=== PATIENT | female | born 1970 | race Caucasian/White ===

== ENCOUNTER → 2016-03-03 | Outpatient (CLI) | payer BC ==
[~2016-03-03] MED LIST: ADAL40PE SQ; ALPR0.5T6 PO; BUPR150T15 PO; BUPR150T4 PO; CELE100C PO; CYAN5POW MC; CYCL10TA2 PO; CYCL5TAB PO; ESTR0.3T PO; HYDR200T5 PO; LISD50CA2 PO; OXYC-244 PO; OXYC5CAP3 PO; PHEN1CPM3 PO; PREG20SO PO; TRAM50TA PO; VARE1TAB5 PO; VENL25TA PO; VENL75TA PO
--- NOTE | 2016-03-03 11:17 | RAD ---
Indication leukocytosis. Protocol study. PA and lateral views of the chest were obtained and are compared to an examination 6 years earlier. The heart and pulmonary vessels appear normal. There are calcified left hilar lymph nodes similar to the previous exam. An acute parenchymal infiltrate or significant change when compared to the previous exam is not seen. IMPRESSION: No acute finding. No significant change
== END | disposition home or self-care (01) ==
LOC: RAD 09:56
PROVIDERS: ATTEND Family Medicine
DX: D72.829 Elevated white blood cell count, unspecified (principal)
CPT/HCPCS: 71020

== ENCOUNTER → 2018-05-18 | Outpatient (CLI) | payer BC ==
[~2018-05-18] MED LIST changes: +DOXE10CA PO; +DULO60CA6 PO; +EMPA10TA PO; +HYDR-2145 PO; +LEVO50TA5 PO; +LIRA0.6P2 SQ; -LISD50CA2 PO; +LISD50CA3 PO; +METF10007 PO; -OXYC-244 PO; +OXYC1TAB19 PO; +OXYC5CAP PO; -OXYC5CAP3 PO; +PRAV40TA2 PO
--- NOTE | 2018-05-18 14:32 | KCIC ---
EXAM: Maxillofacial bone CT without contrast.. HISTORY: Sinusitis. TECHNIQUE: Computed tomographic images the maxillofacial bones were obtained without contrast. *One or more of the following individualized dose reduction techniques were utilized for this examination: 1. Automated exposure control. 2. Adjustment of the mA and/or kV according to patient size. 3. Use of iterative reconstruction technique. COMPARISON: None. FINDINGS: There is no sinus opacification or air-fluid level. The ostiomeatal units are patent. There is mild rightward nasal septal deviation. The orbits and mastoid air cells are unremarkable. The temporomandibular joints are intact. The visualized portions of the brain and calvarium are unremarkable. IMPRESSION: No evidence of acute or chronic sinusitis. Electronically signed by: Tammy Booth MD (05/18/2018 2:29 PM) [place] [id number]
== END | disposition home or self-care (01) ==
LOC: KCIC CT 13:56
PROVIDERS: ATTEND Family Medicine
DX: J32.0 Chronic maxillary sinusitis (principal); J34.2 Deviated nasal septum; J44.9 Chronic obstructive pulmonary disease, unspecified; I10 Essential (primary) hypertension; E11.9 Type 2 diabetes mellitus without complications; F17.210 Nicotine dependence, cigarettes, uncomplicated
CPT/HCPCS: 70486

== ENCOUNTER 2018-07-25 08:28 | Outpatient (CLI) | payer BC ==
[~2018-07-25] VITALS: Ht 152.4 cm; Wt 75.3 kg
[2018-07-25] VITALS (11 sets, daily range): BP systolic 95–155; BP diastolic 66–78
[~2018-07-25 08:28] MED LIST changes: -DOXE10CA PO; -DULO60CA6 PO; -EMPA10TA PO; -HYDR-2145 PO; -LEVO50TA5 PO; -LIRA0.6P2 SQ; -METF10007 PO; -PRAV40TA2 PO
[2018-07-25] MEDS ORDERED: fentaNYL PF VIAL 100 MCG/2 ML VIAL ONE (08:43)
[2018-07-25] MEDS ORDERED: MIDAZOLAM HCL/PF 2 MG/2 ML VIAL. ONE (08:43)
[2018-07-25] MEDS ORDERED: PRAV40TA2 PO (09:01)
[2018-07-25] MEDS ORDERED: HYDR-2145 PO (09:01)
[2018-07-25] MEDS ORDERED: DULO60CA6 PO (09:01)
[2018-07-25] MEDS ORDERED: EMPA10TA PO (09:01)
[2018-07-25] MEDS ORDERED: LIRA0.6P2 SQ (09:01)
[2018-07-25] MEDS ORDERED: LEVO50TA5 PO (09:01)
[2018-07-25] MEDS ORDERED: DOXE10CA PO (09:01)
[2018-07-25] MEDS ORDERED: METF10007 PO (09:01)
[2018-07-25] MEDS ORDERED: LIDOCAINE WITH 8.4% SOD BICARB 3 ML DISP.SYRIN. ONE (09:25)
[2018-07-25 09:26] LABS: BASO # 0.2 x10^3/uL (0.0-0.2); BASO % 1 % (0-3); EOS # 0.3 x10^3/uL (0.0-0.7); EOS % 2 % (0-3); HEMATOCRIT 39.8 % (36.0-47.0); HEMOGLOBIN 13.4 g/dL (12.0-15.5); LYMPH # 5.7 x10^3/uL (1.0-4.8); LYMPH % 34 % (24-48); MEAN CORPUSCULAR HEMOGLOBIN 29 pg (25-35); MEAN CORPUSCULAR HGB CONC 34 g/dL (31-37); MEAN CORPUSCULAR VOLUME 85 fL (79-100); MONO # 1.3 x10^3/uL (0.0-1.1); MONO % 8 % (0-9); NEUT # 9.1 x10^3uL (1.8-7.7); NEUT % 55 % (31-73); PLATELET COUNT 357 x10^3/uL (140-400); RED BLOOD COUNT 4.69 x10^6/uL (3.50-5.40); RED CELL DISTRIBUTION WIDTH 13.4 % (11.5-14.5); WHITE BLOOD COUNT 16.6 x10^3/uL (4.0-11.0)
[2018-07-25 09:35] LABS: PROTHROMBIN TIME PATIENT 12.5 SEC (11.7-14.0)
[2018-07-25] MEDS ORDERED: MIDAZOLAM HCL/PF 2 MG/2 ML VIAL. IV ONE (09:45)
[2018-07-25] MEDS ORDERED: fentaNYL PF VIAL 100 MCG/2 ML VIAL IV ONE (09:45)
[2018-07-25] MEDS ORDERED: LIDOCAINE WITH 8.4% SOD BICARB 3 ML DISP.SYRIN. IJ ONE (09:45)
--- NOTE | 2018-07-25 10:02 | RAD ---
CT-guided bone marrow biopsy. 07/25/2018 9:53 AM Indication: LYMPHOCYTOSIS Discussion: The risks and benefits of the procedure, including but not limited to, bleeding and infection were discussed patient. Informed consent was obtained. The patient was brought to the CT scanner and placed in the prone position. A timeout procedure was performed. Baking Assistant CT imaging of the pelvis demonstrated left ilium amenable to bone marrow biopsy. The overlying soft tissues were prepped and draped using maximum sterile barrier technique. 1% lidocaine without epinephrine was administered for local anesthesia. Under intermittent CT guidance, an OncControl needle was advanced into the bone marrow of the left iliac crest. 2 Aspirates and 1 core biopsy samples were obtained. Samples were delivered to pathology was present at the time of procedure. The needle was removed and manual pressure held to achieve hemostasis. No immediate complications were identified. The procedure was performed under conscious sedation including continuous cardiopulmonary monitoring via dedicated sedation nurse. Sedation time: 20 minutes Impression: Successful CT-guided bone marrow biopsy of the left iliac crest . PQRS Compliance Statement: One or more of the following individualized dose reduction techniques were utilized for this examination: 1. Automated exposure control 2. Adjustment of the mA and/or kV according to patient size 3. Use of iterative reconstruction technique
--- NOTE | 2018-07-25 11:30 | NUR ---
Discharge Note: DALIA CRISTOBAL Discharge instructions and discharge home medications reviewed with Patient and a copy given. All questions have been answered and understanding verbalized. The following instructions and handouts were given: Bone marrow biopsy after care, diabetic diet, and moderate sedation after care. Discontinued lines and drains: PIV, tip intact. Patient discharged to home with via private car.
== END 2018-07-25 11:30 | disposition home or self-care (01) ==
LOC: INTRAD 08:28
PROVIDERS: ATTEND Internal Medicine Hematology & Oncology
DX: D72.820 Lymphocytosis (symptomatic) (principal); Z79.01 Long term (current) use of anticoagulants
CPT/HCPCS: 36415; 38222; 77012; 85025; 85610; J2250; J3010; 88184; 88185; 88237; 99152